=== PATIENT | female | born 1965 | race American Indian/Alaskan Native ===

== ENCOUNTER 2019-02-14 17:08 | Emergency (ER) | payer OTHER ==
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
[2019-02-14] MEDS ORDERED: HYDROcodone/ACETAMINOPHEN 7.5-325MG TAB PO ONE (20:14)
[2019-02-14] MEDS ORDERED: IBUPROFEN 600 MG TAB PO ONE (20:14)
[2019-02-14] MEDS ORDERED: ONDANSETRON 4 MG ODT TAB PO ONE (20:14)
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
[2019-02-14 21:29] VITALS: BP 119/74
== END 2019-02-14 21:30 | disposition home or self-care (01) ==
LOC: ED 17:08
DX: S83.91XA Sprain of unspecified site of right knee, initial encounter (principal); M62.838 Other muscle spasm; M62.830 Muscle spasm of back; J45.909 Unspecified asthma, uncomplicated; Z79.899 Other long term (current) drug therapy; X58.XXXA Exposure to other specified factors, initial encounter; Y93.89 Activity, other specified; Y92.89 Other specified places as the place of occurrence of the external cause; Y99.8 Other external cause status
CPT/HCPCS: 72040; Q0162